=== PATIENT | male | born 1975 | race Two or more races ===

== ENCOUNTER → 2025-02-27 | Outpatient (CLI) | payer BC, SELFPAY ==
--- NOTE | 2025-02-27 | XR_ITS ---
Examination: Knee bilateral, 7 views Technique: Knee AP, lateral, oblique each knee,, 6 views axial bilateral knees single view total 7 views Date and time of exam: February 27, 2025, 0736 hours, INDICATIONS: Bilateral knee pain 2 weeks. FINDINGS: Bilateral minimal tricompartment osteoarthritis No fractures No patellar dislocation IMPRESSION: Bilateral minimal tricompartment osteoarthritis
== END | disposition home or self-care (01) ==
LOC: CDIM 07:14
PROVIDERS: PCP Nurse Practitioner Family; Referring Provider Nurse Practitioner Family; Visit Provider Nurse Practitioner Family
DX: M17.0 Bilateral primary osteoarthritis of knee (principal)
CPT/HCPCS: 73564

== ENCOUNTER → 2025-07-07 | Outpatient (CLI) | payer BC, SELFPAY ==
--- NOTE | 2025-07-07 15:15 | XR_ITS ---
Exam: MRI knee without contrast, right Date and time of exam: July 07, 2025, 1537 hours INDICATIONS: Medial joint pain joint locking clicking numbness 3 months Technique: Multiple axial, coronal, and sagittal sections on the knee have been obtained. T2-Weighted sagittal, fat-suppressed images, TR 3,500, TE 62, T2 weighted coronal fat-saturated images, TR 3,500, TE 62 Proton density sagittal sections, TR 1800, TE 31. T-1 weighted coronal images, TR 524, TE 13.0 Findings: Medial meniscus anterior horn intact. Medial meniscus, body intact. Posterior horn medial meniscus horizontal peripheral linear tear sagittal image 6. Lateral meniscus anterior horn is intact Lateral meniscus, body is intact Posterior horn lateral meniscus is intact Anterior cruciate ligament moderate sprain Posterior cruciate ligament appears intact. Knee effusion is small. Quadriceps and patellar tendons appear intact. There is no evidence of tendinosis. Inflammatory change or fracture of Hoffa's fat pad is not seen. Medial patellar facet demonstrates no thinning. Lateral patellar facet cartilage demonstrates no thinning. Trochlear cartilage demonstrates no thinning. Marrow signal adequate. Medial collateral ligament appears intact. No meniscocapsular separation is seen. Illiotibial band and fibular collateral ligament are intact. Biceps femoris tendons appear intact. Medial femoral condylar articular cartilage demonstrates mild thinning. Lateral femoral condylar articular cartilage demonstrates mild thinning. Tibial plateau cartilage demonstrates mild thinning. Impression: Moderate sprain injury cruciate ligament Small peripheral horizontal linear tear posterior horn medial meniscus
== END | disposition home or self-care (01) ==
LOC: SMRI 15:04
PROVIDERS: PCP Nurse Practitioner Family; Referring Provider Orthopaedic Surgery Orthopaedic Trauma; Visit Provider Orthopaedic Surgery Orthopaedic Trauma
DX: S89.81XA Other specified injuries of right lower leg, initial encounter (principal); S83.241A Other tear of medial meniscus, current injury, right knee, initial encounter; X58.XXXA Exposure to other specified factors, initial encounter
CPT/HCPCS: 73721